=== PATIENT | female | born 1980 | race Caucasian/White ===

== ENCOUNTER 2017-08-12 18:31 | Outpatient (CLI) | payer OTHER ==
[2017-08-12 18:45] VITALS: BP 115/68; PULSE 82; RESP 18; TEMP 98.6
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
== END 2017-08-12 21:05 | disposition home or self-care (01) ==
LOC: FBPOP 18:31
PROVIDERS: ATTEND Obstetrics & Gynecology
DX: O9A.22 Injury, poisoning and certain other consequences of external causes complicating childbirth (principal); S39.91XA Unspecified injury of abdomen, initial encounter; Z3A.33 33 weeks gestation of pregnancy
CPT/HCPCS: 59025; 84112; G0463; 99213

== ENCOUNTER 2017-09-29 15:15 | Inpatient (IN) | payer OTHER ==
[2017-10-01] MEDS ORDERED: CARBOPROST TROMETHAMINE 250 MCG/ML 1 ML AMP IM PRN (06:57)
[2017-10-01] MEDS ORDERED: LIDOCAINE 1% (PF) 10 MG/ML (30 ML SDV) SQ PRN (06:57)
[2017-10-01] MEDS ORDERED: OXYTOCIN 10 UNIT/ML 1 ML VIAL IM PRN (06:57)
[2017-10-01] MEDS ORDERED: METHYLERGONOVINE 0.2 MG/ML 1 ML AMP IM PRN (06:57)
[2017-10-01] MEDS ORDERED: TERBUTALINE 1 MG/ML VIAL SQ PRN (06:57)
[2017-10-01] MEDS: LACTATED RINGERS 1,000 ML IV SCH ×3 (07:00→11:57)
[2017-10-01] MEDS ORDERED: OXYTOCIN 20 UNITS/1000 ML NS 1,000 ML IV SCH (07:00)
[2017-10-01 07:11] LABS: Basophils % (A) 1 %; CH 29.9; CHCM 33.7; Eosinophils # (A) 0.2 k/uL (0-0.7); Eosinophils % (A) 2 %; HDW 2.87; HGB 11.2 gm/dL (11.4-16.0); Luc # (Auto) 0.19; Luc % (Auto) 3; Lymphocytes # (A) 1.3 k/uL (1.0-4.8); Lymphocytes % (A) 19 %; MCH 29.5 pg (25.0-35.0); MCV 89.4 fL (80.0-100.0); Mean Platelet Volume 7.7; Monocytes # (A) 0.5 k/uL (0-1.0); Monocytes % (A) 8 %; Neutrophils # (A) 4.7 k/uL (1.3-7.7); Neutrophils % (A) 68 %; RDW 13.8 % (11.5-15.5); WBC 6.9 k/uL (3.8-10.6); WBC (Perox) 7.25
[2017-10-01] MEDS ORDERED: BUTORPHANOL 1 MG/ML 1 ML VIAL IV PRN (08:48)
--- NOTE | 2017-10-01 08:53 | P.HPOB ---
History of Present Illness H&P Date: 10/01/17 Chief Complaint: 40-2/7 weeks, induction of labor The patient is a 37-year-old 4 para 2011 admitted at 40-2/7 weeks as established by a 21 week ultrasound. She is admitted for induction of labor with all signs reassuring. Her has been uncomplicated though she falls into the category of advanced maternal age and declined any testing. Group B strep status is negative. Obstetrical history 4 para 2011 with 2 term vaginal deliveries without complications. She did also have one early miscarriage not requiring D&C. Current statistics are listed in history of present illness. EDC of 09/29/2017 was established by 21 week ultrasound. Laboratory workup demonstrates a blood type of O+ with a negative antibody screen. Rubella status is immune. Remainder of laboratory workup was within normal limits. One hour Glucola was normal and group B strep status is negative. Gynecologic history is unremarkable with no history of any infections to include STDs. Review of Systems Review of systems is confined to history of present illness. Past Medical History Past Medical History: No Reported History History of Any Multi-Drug Resistant Organisms: None Reported Additional Past Surgical History / Comment(s): breast reduction Smoking Status: Never smoker Medications and Allergies Home Medications Medication Instructions Recorded Confirmed Type Pnv,Calcium 72/Iron/Folic Acid 1 tab PO DAILY 08/12/17 10/01/17 History [ Plus Tablet] Allergies Allergy/AdvReac Type Severity Reaction Status Date / Time latex Allergy Itching Verified 10/01/17 06:56 Exam - Vital Signs Vital signs: Intake and Output 09/30/17 10/01/17 10/01/17 22:59 06:59 14:59 Other: Weight 86.183 kg In general, this is a well-developed, well-nourished white female in no acute distress. Her heart has a regular rhythm and rate without murmur. Her lungs are clear to auscultation bilaterally in all weller. Her abdomen is gravid, nondistended, has normal active bowel sounds, soft, nontender, and without any palpable masses aside from uterine fundus. Her extremities are without any cyanosis, clubbing, or significant edema and are nontender to palpation bilaterally. Digital cervical examination demonstrates her cervix to be 4 cm dilated, 90% effaced, vertex in presentation at -1-2 station. Artificial rupture of membranes is carried out demonstrating clear fluid. Results Result Diagrams: 10/01/17 07:00 Abnormal Lab Results - Last 24 Hours (Table) 10/01/17 Range/Units 07:00 Hgb 11.2 L (11.4-16.0) gm/dL Assessment and Plan (1) Post-dates Current Visit: Yes Status: Acute Code(s): O48.0 - POST-TERM SNOMED Code(s): 52696354 Plan: The patient is admitted for induction of labor. Pitocin augmentation has been started and the she will continue to have close maternal and surveillance as well as expectant management. She is a good candidate for either IV or epidural analgesia, whichever she may choose.
[2017-10-01] MEDS ORDERED: SODIUM CHLORIDE 0.9% 100 ML BAG ONE (09:27)
[2017-10-01] MEDS ORDERED: fentaNYL (PF) 50 MCG/ML 5 ML AMP ONE (09:27)
[2017-10-01] MEDS ORDERED: BUPIVACAINE (PF) 0.25% 30 ML VIAL ONE (09:27)
[2017-10-01] MEDS ORDERED: BUPIVACAINE (PF) 0.25% 25 ML, fentaNYL (PF) 200 MCG in SODIUM CHLORIDE 0.9% 71 ML EPIDURAL ONE (09:47)
[2017-10-01 10:46] VITALS: BMI 26.4
[2017-10-01] MEDS ORDERED: diphenhydrAMINE 50 MG/ML 1 ML VIAL IVP PRN ×2 (13:59)
[2017-10-01] MEDS ORDERED: BENZOCAINE/MENTHOL SPRAY 1 GM/SPRAY AEROSOL TOPICAL PRN (13:59)
[2017-10-01] MEDS ORDERED: ACETAMINOPHEN TAB 325 MG TAB PO PRN (13:59)
[2017-10-01] MEDS ORDERED: HYDROCORTISONE 2.5% RECTAL CREAM 30 GM TUBE RECTAL PRN (13:59)
[2017-10-01] MEDS ORDERED: ZOLPIDEM 5 MG TAB PO PRN (13:59)
[2017-10-01] MEDS ORDERED: diphenhydrAMINE 25 MG CAP PO PRN (13:59)
[2017-10-01] MEDS ORDERED: diphenhydrAMINE 50 MG CAP PO PRN (13:59)
[2017-10-01] MEDS ORDERED: WITCH HAZEL 1 EACH MED..PAD TOPICAL PRN (13:59)
[2017-10-01] MEDS ORDERED: Acetaminophen-Codeine 300-30mg TAB PO PRN ×2 (13:59)
[2017-10-01] MEDS ORDERED: SIMETHICONE 80 MG CHEWABLE PO PRN (13:59)
--- NOTE | 2017-10-01 14:04 | P.PROBDLV ---
Vaginal Delivery Note - . Vaginal Delivery Note: The patient is a 37-year-old 4 para 2011 admitted at 40-2/7 weeks by 21 week ultrasound. She is admitted for postdates induction of labor with a favorable cervix and all signs reassuring. Her has been uncomplicated. She qualifies for advanced maternal age and declined any testing. On labor and delivery, she had Pitocin started followed by artificial rupture of membranes demonstrating clear fluid. She had an epidural catheter placed at the onset of the active phase of labor. She made fairly consistent and rapid progress through the active phase of labor to complete and approximately 0 station. She pushed over the course of approximately 25 minutes to a normal spontaneous vaginal delivery of a viable 8 lbs. 13 oz. baby girl with Apgars of 9 at 1 minute and 10 at 5 minutes delivered in the right occiput anterior position. The nose and mouth were thoroughly suctioned on the perineum. The placenta was delivered spontaneously, intact, and grossly normal although it was fairly large. It had a grossly normal, centrally inserted three -vessel cord. A partial third-degree perineal laceration was noted with the anterior capsule of the external anal sphincter having been disrupted. The sphincter was closed with 2 [id number] stitches of 2-0 Vicryl. The remainder of the laceration was then closed in standard fashion using 3-0 chromic catgut without difficulty. The laceration did occur over the site of a previous laceration based upon the scar seen while the infant was . Estimated blood loss for the case was approximate 400 mL. There were no complications aside from the partial third-degree laceration. All sponge, instrument, and needle counts were correct. Both mother and are resting comfortably in recovery.
[2017-10-01] MEDS: IBUPROFEN 600 MG TAB PO PRN ×2 (15:39→23:07)
[2017-10-01] MEDS: SENNOSIDES-DOCUSATE SODIUM 1 EACH TAB PO SCH (19:41)
--- NOTE | 2017-10-02 08:53 | P.PNOBGVD ---
Subjective - Subjective Patient reports: Reports appetite normal, Reports voiding normally, Reports pain well controlled, Reports ambulating normally : doing well Objective - Latest Vital Signs Latest vital signs: Vital Signs Temp Pulse Resp BP Pulse Ox 10/02/17 04:00 98.0 F 68 18 114/73 98 10/02/17 00:00 98.1 F 71 18 110/67 100 10/01/17 20:00 98.0 F 68 18 113/65 100 10/01/17 15:56 98.6 F 72 16 113/59 10/01/17 15:26 70 16 111/53 10/01/17 14:56 68 16 109/58 10/01/17 14:41 77 16 106/57 10/01/17 14:26 88 16 113/57 10/01/17 14:11 90 16 116/58 10/01/17 13:56 90 16 109/52 Intake and Output 10/01/17 10/02/17 10/02/17 22:59 06:59 14:59 Other: # Voids 1 - Exam Extremities: Present: normal Abdomen: Present: normal appearance, soft Uterus: Present: normal, firm (The uterine fundus is tonic and nontender at the umbilicus.) Assessment and Plan (1) Post-dates Current Visit: Yes Status: Acute Code(s): O48.0 - POST-TERM SNOMED Code(s): 04805031 (2) Normal spontaneous vaginal delivery Current Visit: Yes Status: Acute Code(s): O80 - ENCOUNTER FOR FULL-TERM UNCOMPLICATED DELIVERY SNOMED Code(s): 05893755 Plan: Continue routine care. I anticipate discharge home tomorrow pending no complications.
[2017-10-02] MEDS: SENNOSIDES-DOCUSATE SODIUM 1 EACH TAB PO SCH ×2 (09:11→21:22)
[2017-10-02] MEDS: IBUPROFEN 600 MG TAB PO PRN ×3 (09:11→22:21)
[2017-10-03] MEDS: IBUPROFEN 600 MG TAB PO PRN ×2 (04:35→11:01)
--- NOTE | 2017-10-03 07:41 | P.DS ---
Providers Date of admission: 10/01/17 06:42 Expected date of discharge: 10/03/17 Attending physician: Flex Palacios Primary care physician: Stated None - Discharge Diagnosis(es) (1) Post-dates Current Visit: Yes Status: Acute (2) Normal spontaneous vaginal delivery Current Visit: Yes Status: Acute Hospital Course: The patient is a 37-year-old 4 para 2012 admitted at 40-2/7 weeks by a 21 week ultrasound. She is admitted for induction of labor with all signs reassuring. Her was uncomplicated though she did fall into the category of advanced maternal age and declined testing. Group B strep status was negative. On labor and delivery, she had Pitocin started followed by artificial rupture of membranes demonstrating clear fluid. She had an epidural catheter placed and then made fairly quick progress through the active phase of labor to complete. She pushed to a normal spontaneous vaginal delivery of a viable 8 lbs. 13 oz. baby girl with Apgars of 9 at 1 minute and 10 at 5 minutes. Her course was unremarkable though she did have a partial third-degree laceration which was repaired at the time of delivery. She was deemed stable for discharge by day #2 was discharged home to follow-up in the office in 6 weeks routinely. Discharge instructions included calling for any significantly increased bleeding or foul-smelling lochia, significantly increased fever or abdominal pain, perineal complaints, breast complaints, or anything else that concerned her. She was additionally instructed to have nothing in the vagina for at least 6 weeks time to include intercourse. She understood her instructions and agrees to follow up as noted above. Discharge medications included only [id number] analgesic pain medications. She has chosen to bottle feed. Maternal blood type is O+ and rubella status is immune. Procedures: #1. Pitocin induction #2. Artificial rupture of membranes #3. Epidural analgesia #4. Normal spontaneous vaginal delivery #5. Repair of third-degree perineal laceration Patient Condition at Discharge: Good Plan - Discharge Summary New Discharge Prescriptions: No Action Pnv,Calcium 72/Iron/Folic Acid [ Plus Tablet] 1 tab PO DAILY Discharge Medication List Pnv,Calcium 72/Iron/Folic Acid [ Plus Tablet] 1 tab PO DAILY 08/12/17 [ History] Follow up Appointment(s)/Referral(s): Flex Palacios MD [STAFF PHYSICIAN] - 6 Weeks Discharge Disposition: HOME SELF-CARE
[2017-10-03 09:18] VITALS: BP 116/73; PULSE 92; RESP 14; TEMP 97.6
[2017-10-03] MEDS: SENNOSIDES-DOCUSATE SODIUM 1 EACH TAB PO SCH (11:11)
== END 2017-10-03 11:00 | disposition home or self-care (01) | DRG 542 ==
LOC: 4FBP 10-01 06:42
PROVIDERS: ADMIT Obstetrics & Gynecology; ATTEND Obstetrics & Gynecology
PROC: 10E0XZZ Delivery of Products of Conception, External Approach (ICD-10-PCS; principal; 2017-10-01)
PROC: 3E033VJ Introduction of Other Hormone into Peripheral Vein, Percutaneous Approach (ICD-10-PCS; principal; 2017-10-01)
PROC: 00HU33Z Insertion of Infusion Device into Spinal Canal, Percutaneous Approach (ICD-10-PCS; principal; 2017-10-01)
PROC: 0DQR0ZZ Repair Anal Sphincter, Open Approach (ICD-10-PCS; principal; 2017-10-01)
PROC: 3E0R3BZ Introduction of Anesthetic Agent into Spinal Canal, Percutaneous Approach (ICD-10-PCS; principal; 2017-10-01)
PROC: 10907ZC Drainage of Amniotic Fluid, Therapeutic from Products of Conception, Via Natural or Artificial Opening (ICD-10-PCS; principal; 2017-10-01)
DX: O48.0 Post-term pregnancy (principal); O70.20 Third degree perineal laceration during delivery, unspecified; Z91.040 Latex allergy status; Z37.0 Single live birth; Z3A.40 40 weeks gestation of pregnancy
CPT/HCPCS: 85025; 88307

== ENCOUNTER → 2020-06-23 | Outpatient (CLI) | payer OTHER ==
--- NOTE | 2020-06-24 11:00 | ECHOF ---
Referral Reason:R01.1 Cardiac murmur, unspecified MEASUREMENTS -------- HEIGHT: 180.3 cm WEIGHT: 81.2 kg BP: 120/72 RVIDd: 3.1 cm (< 3.3) IVSd: 0.9 cm (0.6 - 1.1) LVIDd: 5.1 cm (3.9 - 5.3) LVPWd: 0.9 cm (0.6 - 1.1) IVSs: 1.4 cm LVIDs: 2.9 cm LVPWs: 1.4 cm LA Diam: 3.3 cm (2.7 - 3.8) LAESV Index (A-L): 19.94 ml/m Ao Diam: 2.8 cm (2.0 - 3.7) AV Cusp: 2.0 cm (1.5 - 2.6) MV EXCURSION: 15.184 mm (> 18.000) MV EF SLOPE: 76 mm/s (70 - 150) EPSS: 1.5 cm MV E Aleksey: 0.72 m/s MV DecT: 270 ms MV A Aleksey: 0.76 m/s MV E/A Ratio: 0.95 RAP: 5.00 mmHg RVSP: 19.00 mmHg FINDINGS -------- Sinus rhythm. This was a technically adequate study. The left ventricular size is normal. Left ventricular wall thickness is normal. Overall left vent ricular systolic function is normal with, an EF between 60 - 65 %. The right ventricle is normal in size. Normal LA size by volume 22+/-6 ml/m2. The right atrium is normal in size. Interatrial and interventricular septum intact. The aortic valve is trileaflet and appears structurally normal. There is trace to mild mitral regurgitation. Mild tricuspid regurgitation present. Right ventricular systolic pressure is normal at < 35 mmHg. Trace/mild (physiologic) pulmonic regurgitation. The aortic root size is normal. Normal inferior vena cava with normal inspiratory collapse consistent with estimated right atrial pre ssure of 5 mmHg. There is no pericardial effusion. CONCLUSIONS -------- 1. Sinus rhythm. 2. This was a technically adequate study. 3. The left ventricular size is normal. 4. Left ventricular wall thickness is normal. 5. Overall left ventricular systolic function is normal with, an EF between 60 - 65 %. 6. The aortic valve is trileaflet and appears structurally normal. 7. There is trace to mild mitral regurgitation. 8. Mild tricuspid regurgitation present. 9. Right ventricular systolic pressure is normal at < 35 mmHg. 10. Trace/mild (physiologic) pulmonic regurgitation. 11. There is no pericardial effusion. TRACTOR SWEEPER OPERATOR: Daphne Lovell RDCS
== END | disposition home or self-care (01) ==
LOC: RADECHMAIN 11:17
PROVIDERS: ATTEND Family Medicine
DX: I07.1 Rheumatic tricuspid insufficiency (principal)
CPT/HCPCS: 93306

== ENCOUNTER → 2020-08-26 | Outpatient (CLI) | payer OTHER ==
--- NOTE | 2020-08-26 14:11 | MM ---
Reason for exam: screening (asymptomatic). Baseline mammogram. History: Patient history of other cancer. Reductions of both breasts, 1998. Took hormonal contraceptives for 3 years. Physical Findings: Nurse did not find any significant physical abnormalities on exam. MG 3D Screening Mammo W/Cad Bilateral CC and MLO view(s) were taken. Asymmetries. These results were verbally communicated with the patient and result sheet given to the patient on 08/26/20. ASSESSMENT: Benign, BI-RAD 2 RECOMMENDATION: Routine screening mammogram of both breasts in 1 year.
== END | disposition home or self-care (01) ==
LOC: RADMAMWWP 13:24
PROVIDERS: ATTEND Family Medicine
DX: Z12.31 Encounter for screening mammogram for malignant neoplasm of breast (principal)
CPT/HCPCS: 77063; 77067